=== PATIENT | female | born 1965 | race Caucasian/White ===

== ENCOUNTER 2016-12-28 11:32 | Inpatient (IN) ==
[2016-12-28] MEDS: PROTONIX IV SCH (17:39)
[2016-12-28] MEDS: NORCO-10 PO PRN ×2 (17:39→21:54)
[2016-12-28] MEDS: SODIUM CHLORIDE 0.9% INJ SCH (17:39)
[2016-12-28] MEDS: NS 1,000 ML IV SCH (17:40)
[2016-12-28 18:07] LABS: MANUAL DIFF NEEDED? NO
[2016-12-28 18:11] LABS: BASO% 0.1 % (0.0-0.8); EOS# 0.04 X1000 (0.0-0.7); EOS% 0.2 % (0.0-10.0); HEMATOCRIT 39.4 % (37.0-47.0); HEMOGLOBIN 13.3 g/dL (12.0-16.0); IMM GRAN# 0.17 X1000 (0.0-0.04); IMM GRAN% 0.9 % (0.0-0.5); LYMPH# 3.32 X1000 (1.2-3.4); LYMPH% 18.3 % (20.5-51.1); MCHC 33.8 g/dL (33-37); MCV 91.8 FL (81-99); MONO# 2.21 X1000 (0.11-0.59); MONO% 12.1 % (1.7-9.3); MPV 9.4 FL (7.4-10.4); NEUT% 68.4 % (42.2-75.2); PLT 301 X1000 (130-400); RBC 4.29 XMIL (4.2-5.4)
[2016-12-28 18:36] LABS: INR 0.93; PROTIME 9.5 Seconds (9.2-11.7)
[2016-12-28 18:40] LABS: AGAP 14; BUN 36 mg/dL (8-22); CALCIUM 8.7 mg/dL (8.8-10.2); CHLORIDE 100 mmol/L (98-107); COSMO 286; LDH 130 U/L (135-214); POTASSIUM 3.8 mmol/L (3.5-5.1); SODIUM 137 mmol/L (136-145); TCO2 23 mmol/L (25-35)
[2016-12-28 19:20] LABS: SED RATE 1 mm/hr (0-20)
[2016-12-28] MEDS: NICODERM PATCH TD SCH (19:33)
[2016-12-28] MEDS: DECADRON IV SCH (19:33)
--- NOTE | 2016-12-28 21:20 | HISTORY AND PHYSICAL ---
CHIEF COMPLAINT: Headache. Blurring of vision. Diplopia. Weakness in the right eye for the last 2 weeks. HISTORY OF PRESENT ILLNESS: She is a 51-year-old, pleasant white female, was admitted at [facility] for the above symptoms. She was treated for 2 days after the MRI findings of some spots in the brain. She was referred to Dr. Hernandes, started on dexamethasone. The etiology was not clear. 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 Was treated by Dr. Aquino. She did receive 4 cycles of R-CHOP on 02/25/2013, completed on 04/18/2013. She was also seen by Dr. Baez who did not recommend radiation. The last time she was seen by Dr. Aquino 03/20/2016. The last PET-CT was done 03/17/2016, nonspecific intermediate activity of right cervical lymph nodes. No evidence of metabolically active tumor. She also had MRI 03/24/2016, showed amyloid angiopathy. Today in my office, apparently, she had right lateral rectus muscle weakness with diplopia. She also has some rash on the face. I do not have the details. Basically, admitted to the hospital for recurrence of lymphoma, evaluation of right 6th nerve palsy and will get the reports from [facility]. Based on that, further recommendations will be followed. As a result, a hospital admission was warranted. She is also falling and dizzy. PAST MEDICAL HISTORY: Anxiety. History of depression with bipolar. Deafness in the left ear. Hyperlipidemia. Nicotine dependency. 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 PAST SURGICAL HISTORY: x4. Right benign breast biopsy. MEDICATIONS: Seroquel 50 daily. Xanax 0.5 t.i.d. Zoloft 200 daily. Dexamethasone 4 mg p.o. daily. Gabapentin as directed. Oxcarbazepine 300 b.i.d. ALLERGIES: Not known. SOCIAL HISTORY: Single. Retired. Lives in [place]. Smoking 1 pack a day for last 20 years. Socially drinks alcohol. FAMILY HISTORY: Father of colon cancer. Mom of lung cancer at 74. HEALTH MAINTENANCE: Flu vaccine 2017. Pneumococcal vaccine 2017. Mammography , last one 2009. Colonoscopy [address] Antonio. REVIEW OF SYSTEMS: HEENT: Slight headache, double vision, deafness in the left ear. Rash on the left cheek. No sore throat. Neck: No significant lymph nodes. Cardiopulmonary: No chest pain, shortness of breath, PND, orthopnea. GI: No nausea, vomiting, abdominal pain. No altered bowel habits. No bleeding per rectum. : No history of hesitancy, frequency. No swelling of feet. No joint pain. Neurologic: No focal symptoms or weakness. PHYSICAL EXAMINATION: VITAL SIGNS: Are stable. 5 feet 4, 113 pounds. HEENT: Atraumatic, normocephalic. Pupils equal, reactive to light. Weakness in the right lateral movement. Throat is in midline, had a scar present on the left side of the neck. No significant lymphadenopathy. No neck rigidity. CHEST: Clear to auscultation. HEART: Sounds are regular. No murmur. ABDOMEN: Belly is soft, nontender. Good bowel sounds. No masses palpable. No peripheral edema or cyanosis. Right-sided Port-A-Cath. NEUROLOGICAL: No neurological deficits. INVESTIGATIONS: White cell count 18.1, hematocrit 39, platelets 301,000. PT/ INR is normal. D- dimer is normal. SMA7, BUN is slightly high. Calcium 8.7. Sedimentation rate is 1, CRP is normal. LDH is 130. ASSESSMENT AND PLAN: 1. A 51-year-old white female with a known history of stage I parotid tumor left side, diffuse large B-cell lymphoma status post chemotherapy, in remission. Presented with headache, diplopia, weakness in the right lateral rectus muscle, suspicious for 6th nerve palsy. Etiology to be determined. We will review the reports from the [facility]. Last magnetic resonance imaging of the brain here in March 2016 was negative as well as positron emission tomography scan. 2. Continue intravenous steroids. 3. Ongoing tobacco abuse. Quit smoking. 4. Reconcile home medicines. 5. Dehydration. Intravenous fluids. Discussed with the Dr. Gupta and based on the magnetic resonance imaging, further recommendations will be followed and we will also consult Dr. Aquino. [facility]
[2016-12-28] MEDS: SEROQUEL PO SCH (21:52)
[2016-12-28] MEDS: XANAX PO SCH (21:52)
[2016-12-29] MEDS: NORCO-10 PO PRN ×4 (02:38→22:46)
[2016-12-29] MEDS: DECADRON IV SCH ×3 (02:42→17:28)
[2016-12-29] MEDS: AMBIEN PO PRN (02:42)
--- NOTE | 2016-12-29 07:44 | Diag Imaging Result Document ---
PROCEDURE NAME: CHEST-2 VIEWS - 12/28/2016 CHEST X-RAY 2 VIEWS, 12/28/2016: COMPARISON: None. FINDINGS: There is a right chest port in good position with the catheter tip at the mid SVC. The lungs are clear. Heart size is normal. No pneumothorax or pleural effusion. IMPRESSION: Negative exam.
[2016-12-29] MEDS ORDERED: ZOLOFT PO SCH (09:00)
[2016-12-29] MEDS: XANAX PO SCH ×2 (09:32→20:34)
[2016-12-29] MEDS: NICODERM PATCH TD SCH (09:33)
[2016-12-29] MEDS: NS 1,000 ML IV SCH ×2 (09:35→18:23)
--- NOTE | 2016-12-29 11:22 | CONSULTATION ---
DATE OF CONSULTATION: 12/29/2016 HISTORY OF PRESENT ILLNESS: Ms. Brennan is 51 years old and she presents with recent onset of diplopia, right-sided eye and head pain, numbness in the limbs, and gait more unsteady than baseline. History from the patient with no corroborating records reviewed at this point is that she had chronic mild unsteady gait with no recent falling. Tda-jfa-w-half weeks ago, she woke and noticed horizontal diplopia which persisted. This has never resolved and seems to be more prominent now than at onset. Around the same time, she noticed that her gait was more unsteady with more tendency to stumble, and she believes she was more clumsy in the right leg than the left. She has had some falls in the last few weeks. Falls are not associated with altered consciousness, altered awareness, memory gap, incontinence. She can get up without assistance. She began to notice sharp pain around the right eye and adjacent portion of her head. This has been persistent. She [facility]. She reports admission and workup including brain MRI. I do not have that report. She saw Dr. Hernandes in [place] for Neurology evaluation about 2 weeks ago. She had a contrast CT scan then and I do not have that report. She was treated with steroids in the hospital a few weeks ago. There is past history of left parotid B-cell lymphoma, managed with excision and chemotherapy a few years ago. Last imaging report that I have is 03/24/2016 brain MRI with and without contrast reported to show widespread signal interpreted as likely amyloid angiopathy. VITAL SIGNS: On admission here, she is afebrile. Blood pressures have ranged 110s to 130s systolic. LABORATORIES: Blood sugar was 163. WBC count was 18,000. We do not have urine drug screen. MEDICATIONS: Her home medicines include alprazolam, averaging a dose twice a day; hydrocodone, averaging a dose once or twice a day; Quetiapine; sertraline; others. NEUROLOGIC EXAMINATION: On exam, Ms. Brennan is awake, alert, attentive, appropriate, oriented. Speech is not dysarthric. Language function is intact. Memory is good. Head is unremarkable. Neck is supple. She has some crusty lesions across the left cheek. Oropharynx is unremarkable. Tongue is midline. She has full visual lynn tested monocularly on the right and left by finger counting. She has complete right lateral rectus weakness. She has good up and down movement with the right eye and good medial rectus function on the right. Left extraocular movement is full. There is no ptosis. Forehead wrinkling is equal. Lower facial motility is symmetric. She has lost hearing on the left. Shoulder shrug is good bilaterally. She did well on [id number] testing bilaterally. She had some difficulty with right qork-iy-hybv testing more than the left. Power is normal and symmetric in the limbs. Her gait is slightly wide-based. She has trouble placing her feet properly for heel-to-toe tandem walking and requires some assistance to accomplish that. Reflexes are 2+ symmetrically at the knees and wrists. Plantar response is silent bilaterally. She reports diminished pinprick appreciation over the right face, hand, and leg compared to the left. Proprioception is little bit diminished but symmetric at the great toe MTP joint bilaterally. IMPRESSION: Headache, right lateral rectus weakness, left-sided numbness, mild right hemiataxia, chronic loss of hearing on the left. With her reported history of lymphoma, concern is high for metastatic disease. The lateral rectus weakness may be "false localizing sign" indicating only increased intracranial pressure, or could be direct right 6th nerve involvement. I do not see any other definite cranial neuropathy. I do not find any other evidence of brainstem lesion on clinical exam. We need to obtain records of previous imaging. If that cannot be obtained or if findings are not definitive, we may need to repeat her MRI here to compare with findings from the scan here 9 months ago. At this point, based on her report to me, she has not had any significant deterioration in recent days and I do not think we have to do anything urgently. She is not particularly uncomfortable now. I encouraged her to be careful with gait and activities. She might benefit from right eye patch when up and about. Further plans will depend on her clinical course and results of workup. Thanks for asking me to see Ms. Brennan. [facility]
[2016-12-29] MEDS: PROTONIX IV SCH (17:29)
[2016-12-29] MEDS: SODIUM CHLORIDE 0.9% INJ SCH (17:29)
[2016-12-29] MEDS: SEROQUEL PO SCH (20:34)
[2016-12-30] MEDS: DECADRON IV SCH ×3 (03:43→17:33)
[2016-12-30] MEDS: NORCO-10 PO PRN ×2 (10:20→17:40)
[2016-12-30] MEDS: ZOLOFT PO SCH (10:21)
[2016-12-30] MEDS: XANAX PO SCH ×5 (10:22→23:23)
[2016-12-30] MEDS: NICODERM PATCH TD SCH (10:22)
--- NOTE | 2016-12-30 10:35 | PROGRESS NOTE ---
DATE: 12/30/2016 There are some records from [facility] including brain imaging reports. She had brain MRI and head CT. These raise concern for metastatic disease. She has brain MRI with and without contrast ordered here today. Further plans will depend on that report and on her clinical course. I do not have any urgent suggestion right now from a neurologic standpoint. Thanks for asking me to see Ms. Brennan.
--- NOTE | 2016-12-30 10:52 | Diag Imaging Result Document ---
PROCEDURE NAME: MRI BRAIN W W/O CONTRAST - 12/30/2016 MRI BRAIN, 12/30/2016: COMPARISON: 03/24/2016. FINDINGS: There are several new foci of heterogeneous signal hyperintensities throughout the brain diffusely. One of the most prominent ones is in the posterior central manolo. There are also several in both cerebral hemispheres. There is very little in the way of mass effect. On the GRE image, there are numerous signal voids that have increased since prior. These are compatible with hemosiderin staining from numerous small, old hemorrhages. IMPRESSION: Worsening diffuse amyloid angiography of the brainstem and cerebrum. New acute hemorrhage at the posterior inferior manolo. There are several other tiny, new acute hemorrhages as well.
[2016-12-30] MEDS ORDERED: METAMUCIL POWDER PACKET PO ONE (11:12)
[2016-12-30] MEDS: BACTROBAN OINTMENT TOP SCH (12:00)
[2016-12-30] MEDS: SODIUM CHLORIDE 0.9% INJ SCH (17:33)
[2016-12-30] MEDS: PROTONIX IV SCH (17:33)
[2016-12-30] MEDS: SEROQUEL PO SCH ×2 (21:15→23:23)
[2016-12-30] MEDS: NS 1,000 ML IV SCH (21:15)
[2016-12-31] MEDS: BACTROBAN OINTMENT TOP SCH ×3 (04:06→21:06)
[2016-12-31] MEDS: DECADRON IV SCH ×3 (04:56→21:05)
[2016-12-31 06:02] LABS: MANUAL DIFF NEEDED? NO
[2016-12-31 06:13] LABS: BASO% 0.1 % (0.0-0.8); EOS# 0.05 X1000 (0.0-0.7); EOS% 0.3 % (0.0-10.0); HEMATOCRIT 39.4 % (37.0-47.0); HEMOGLOBIN 13.1 g/dL (12.0-16.0); IMM GRAN# 0.18 X1000 (0.0-0.04); LYMPH# 2.81 X1000 (1.2-3.4); MCH 30.8 PG (27-31); MCHC 33.2 g/dL (33-37); MCV 92.5 FL (81-99); MONO# 1.66 X1000 (0.11-0.59); MONO% 9.5 % (1.7-9.3); MPV 9.4 FL (7.4-10.4); NEUT% 73.1 % (42.2-75.2); PLT 248 X1000 (130-400); RBC 4.26 XMIL (4.2-5.4)
[2016-12-31 06:24] LABS: AGAP 12; BUN 22 mg/dL (8-22); CALCIUM 8.5 mg/dL (8.8-10.2); CHLORIDE 98 mmol/L (98-107); COSMO 276; POTASSIUM 4.1 mmol/L (3.5-5.1); SODIUM 136 mmol/L (136-145); TCO2 26 mmol/L (25-35)
[2016-12-31] MEDS: NORCO-10 PO PRN ×3 (07:43→21:06)
[2016-12-31] MEDS: NS 1,000 ML IV SCH ×2 (07:46→21:05)
[2016-12-31] MEDS: XANAX PO SCH ×3 (08:03→17:55)
[2016-12-31] MEDS: ZOLOFT PO SCH (08:03)
[2016-12-31] MEDS: NICODERM PATCH TD SCH (08:03)
[2016-12-31] MEDS: PROTONIX IV SCH (17:55)
[2016-12-31] MEDS: SODIUM CHLORIDE 0.9% INJ SCH (17:56)
[2016-12-31] MEDS: SEROQUEL PO SCH (21:06)
[2017-01-01] MEDS: NORCO-10 PO PRN ×2 (01:08→06:12)
[2017-01-01] MEDS: AMBIEN PO PRN (01:08)
[2017-01-01] MEDS: DECADRON IV SCH (06:12)
[2017-01-01 07:38] VITALS: BP 120/75
[2017-01-01] MEDS ORDERED: CYANOCOBALAMIN IM SCH (09:00)
[2017-01-01] MEDS: NICODERM PATCH TD SCH (09:31)
[2017-01-01] MEDS: XANAX PO SCH (09:32)
[2017-01-01] MEDS: ZOLOFT PO SCH (09:42)
--- NOTE | 2017-01-01 20:12 | DISCHARGE SUMMARY ---
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 SECONDARY DIAGNOSES: 1. Chronic anxiety disorder. 2. Bipolar disorder. 3. Chronic deafness in the left ear. 4. Hyperlipidemia. 5. Nicotine dependency. 6. Stage I diffuse large cell B-cell lymphoma from the left parotid gland. CONSULTS: Dr. Gupta. BRIEF HISTORY: Please see the H and P that was done on 12/28/2016. In brief, she is a 51-year- old pleasant white female, was admitted to the hospital from my office with a headache, double vision, right 6th nerve palsy. She was recently admitted at [facility], started on dexamethasone. She had a history of large B-cell lymphoma from the left parotid gland was treated by Dr. Aquino with chemotherapy, stage I cancer. Last workup in March 2016 was negative for PET scan as well as MRI of the brain. HOSPITAL COURSE: Based on the review of [facility] workup , repeat MRI showed angiopathic lesions consistent with cavernomas versus amyloid. There was no signs of malignancy or cancer. She also has a few punctate hemorrhages noted and it is causing the diplopia from the right 6th nerve palsy. At this time the treatment was not very clear, it is basically supportive, not to use any blood thinners. Patient was advised to quit smoking. Continue the eye patch and will be referred as an outpatient with hand spinner Dr. Kaminski. LABS: During this admission. CBC: White cell count 17, hematocrit 39, platelets 248,000. PT/INR is normal. SMA 7 is normal. LDH is normal. CRP is normal. Sedimentation rate is normal. RADIOLOGY PROCEDURES: Chest x-ray, negative exam. Brain MRI. Worsening of diffuse angiopathic changes of the brainstem and cerebellum. New acute hemorrhage at the posterior inferior manolo. DISCHARGE INSTRUCTIONS: Vitamin B12 injection prior to the discharge, Zoloft 200 mg daily, Xanax 0.5 p.o. b.i.d., Seroquel 50 at bedtime, nicotine patch 1 daily, Ultracet as needed for headache, Bactroban ointment for the bruises on the skin, Breo 1 capsule inhalation daily. Outpatient appointment with Dr. Kaminski. Follow up with Dr. Aquino for the surveillance of large cell B-cell lymphoma from the left parotid gland. Nicotine cessation programs. [facility] [place]
== END 2017-01-01 09:53 | disposition home or self-care (01) | DRG 123 ==
LOC: DIRADM 11:32 → 4N 11:32
PROVIDERS: ADMIT Internal Medicine; ATTEND Internal Medicine
DX: H49.21 Sixth [abducent] nerve palsy, right eye (principal); Q28.2 Arteriovenous malformation of cerebral vessels; E85.4 Organ-limited amyloidosis; I68.0 Cerebral amyloid angiopathy; F41.9 Anxiety disorder, unspecified; F31.9 Bipolar disorder, unspecified; H91.92 Unspecified hearing loss, left ear; E78.5 Hyperlipidemia, unspecified; F17.210 Nicotine dependence, cigarettes, uncomplicated; E86.0 Dehydration; Z79.899 Other long term (current) drug therapy; Z80.0 Family history of malignant neoplasm of digestive organs; Z80.1 Family history of malignant neoplasm of trachea, bronchus and lung; Z85.72 Personal history of non-Hodgkin lymphomas; Z92.21 Personal history of antineoplastic chemotherapy
CPT/HCPCS: 70553; 71020; 80048; 83615; 85025; 85379; 85610; 85651; 86140; A9579; C9113; J1100; J7030; S0164